=== PATIENT | female | born 1960 | race Caucasian/White ===

== ENCOUNTER 2017-06-18 07:06 | Day surgery (SDC) | payer OTHER ==
--- NOTE | 2017-06-17 09:16 | CPEKG ---
Heart Rate: 66 RR Interval: 909 P-R Interval: 152 QRSD Interval: 86 QT Interval: 440 QTC Interval: 461 P [place]: 68 QRS [place]: 69 EKG Severity - NORMAL ECG - EKG Impression: SINUS RHYTHM Electronically Signed By: Sterling Plasencia 17-Jun-2017 11:00:43
--- NOTE | 2017-06-17 09:16 | CPEKG ---
Heart Rate: 66 RR Interval: 909 P-R Interval: 152 QRSD Interval: 86 QT Interval: 440 QTC Interval: 461 P [place]: 68 QRS [place]: 69 EKG Severity - NORMAL ECG - EKG Impression: SINUS RHYTHM Electronically Signed By: Sterling Plasencia 17-Jun-2017 11:00:43
[~2017-06-18 07:06] MED LIST: PROPOFOL/EMULSION 500 MG/50 ML BOTTLE IV ONE; fentaNYL 100 MCG/2 ML INJ ONE
[2017-06-18] MEDS ORDERED: MITOMYCIN INVES ONE (07:15)
[2017-06-18] MEDS ORDERED: ceFAZolin 2 GM/SWFI 2 GM/20 ML SYR IVP ONE ×2 (07:18)
[2017-06-18] MEDS ORDERED: LR 1,000 ML IV ONE ×2 (07:19)
[2017-06-18] MEDS ORDERED: MIDAZOLAM 2 MG/2 ML VIAL IVP ONE ×2 (07:23)
[2017-06-18] MEDS ORDERED: ALBUTEROL 3 ML DEYVIAL ONE ×2 (07:34)
[2017-06-18] MEDS ORDERED: ALBUTEROL 60 PUFFS/8 GM MDI IH PRN ×2 (07:37)
--- NOTE | 2017-06-18 07:40 | PDANEPAE ---
ANE History of Present Illness 57 year old woman for cystoscopy for excision of recurrent bladder tumor. History of Asthma, Obesity, Hypertension, and ADHD. ANE Past Medical History - Cardiovascular History Hx Hypertension: Yes Hx Arrhythmias: No Hx Chest Pain: No Hx Coronary Artery / Peripheral Vascular Disease: No Hx CHF / Valvular Disease: No Hx Palpitations: No - Pulmonary History Hx COPD: Yes Hx Recent Upper Respiratory Infection: Yes Hx Oxygen in Use at Home: No Hx Sleep Apnea: No Sleep Apnea Screening Result - Last Documented: Positive Pulmonary History Comment: TROUBLE BREATHING AFTER SURGERY 09/2016 USED OXYGEN AT HOME POST OP - Neurologic History Hx Cerebrovascular Accident: No Hx Seizures: No Hx Dementia: No - Endocrine History Hx Diabetes: No Endocrine History Comment: HYPOTHYROID - Renal History Hx Renal Disorders: No Renal History Comment: HAS HAD UA INCONT SURG NOW DOING OK - Liver History Hx Hepatic Disorders: No - Neurological & Psychiatric Hx Hx Neurological and Psychiatric Disorders: Yes Neurological / Psychiatric History Comment: ADHD. CHRONIC FATIQUE. DEPRESSION - Cancer History Hx Cancer: Yes Cancer History Comment: BLADDER - Congenital Disorder History Hx Congenital Disorders: No - GI History Hx Gastrointestinal Disorders: Yes Gastrointestinal History Comment: WITH HUNGER FELT LIKE SHE WOULD THROW UP PLACED ON RX WITH RESOLUTION - Other Health History Other Health History: WEAK BACK. INTERMITTENT SCIATICA - Chronic Pain History Chronic Pain: No - Surgical History Prior Surgeries: 06/2016 AT [facility] RECTOCELE AND BLADDER SLING(NOTICED BLADDER TUMOR) WITH REMVL OF TUMOR 09/2016. DX LAP. REML CERVICAL POLYP/DYSPLASIA ANE Review of Systems Review of Systems: - Exercise capacity METS (RN): 3 METS ANE Patient History - Allergies Allergies/Adverse Reactions: hydrocodone [From Vicodin] Allergy (Verified 06/15/17 14:45) ITCH metronidazole [From Flagyl] Allergy (Verified 06/15/17 14:45) SWELLING oxycodone [From Percocet] Allergy (Verified 06/15/17 14:46) GI - Home Medications Home Medications: Celexa DAILY06 06/15/17 [Last Taken Unknown] Dulera 100 Mcg/5 Mcg Inhaler BID 06/15/17 [Last Taken Unknown] Flonase Nasal [place] BID 06/15/17 [Last Taken Unknown] Herbal Drugs DAILY 06/15/17 [Last Taken 06/17/17] Hydrochlorothiazide DAILY06 06/15/17 [Last Taken 06/17/17] Liothyronine Sodium DAILY06 06/15/17 [Last Taken 06/17/17] Montelukast Sodium HS 06/15/17 [Last Taken 06/17/17] Proair Hfa PRN 06/15/17 [Last Taken 06/17/17] Ranitidine HCl BID 06/15/17 [Last Taken 06/18/17 06:00] Synthroid DAILY06 06/15/17 [Last Taken 06/18/17 06:00] VYVANSE DAILY06 06/15/17 [Last Taken 06/17/17] - Smoking Hx Smoking Status: Former smoker ANE Labs/Vital Signs - Labs Result Diagrams: 06/16/17 14:38 - Vital Signs Height: 160.02 cm Weight: 93.894 kg ANE Physical Exam - Airway Mallampati Score: Class 2 Mouth exam: dentures - Pulmonary Pulmonary: no respiratory distress - Cardiovascular Cardiovascular: regular rate and rhythym - ASA Status ASA Status: III
[2017-06-18 07:48] VITALS: PULSE 68
[2017-06-18] MEDS ORDERED: ALBUTEROL 200 PUFFS/18 GM MDI IH PRN ×2 (07:48)
[2017-06-18] MEDS ORDERED: IOPAMIDOL (ISOVUE-M 300) 15 ML VIAL ONE ×2 (07:54)
--- NOTE | 2017-06-18 07:54 | PDHPUP ---
History & Physical Update H&P update statement: This history and physical update is based on an assessment of the patient which was completed after admission or registration (within 24 hours), but prior to the surgery/procedure. H&P update: H&P reviewed & patient examined, no change in patient's condition since H&P completed
[2017-06-18] MEDS ORDERED: OPIUM/BELLADONNA ALKALO SUPP PR ONE ×4 (08:30→09:25)
[2017-06-18] MEDS ORDERED: PHENAZOPYRIDINE HCL 200 MG TAB PO ONE ×2 (09:00)
[2017-06-18] MEDS ORDERED: ONDANSETRON 4 MG/2 ML VIAL IVP PRN ×2 (09:16)
[2017-06-18] MEDS ORDERED: LABETALOL HCL 50 MG/10 ML SYR IVP PRN ×2 (09:16)
[2017-06-18] MEDS ORDERED: METOCLOPRAMIDE 10 MG/2 ML VIAL IVP PRN ×2 (09:16)
[2017-06-18] MEDS ORDERED: PROMETHAZINE HCL 25 MG/ML INJ IVP PRN ×2 (09:16)
[2017-06-18] MEDS ORDERED: NALOXONE HCL 0.4 MG/ML INJ IVP PRN ×2 (09:16)
[2017-06-18] MEDS ORDERED: ACETAMINOPHEN 500 MG TAB PO PRN ×2 (09:16)
[2017-06-18] MEDS ORDERED: LR 500 ML IV PRN ×2 (09:16)
--- NOTE | 2017-06-18 09:19 | POSTANESTH ---
Post Anesthetic Evaluation Respiratory Status: Normal, Stable Level of Consciousness/Mental Status: Can Participate in Eval Pain Control: Adequate, Prn Tx Ordered Nausea/Vomiting Control: Adequate, Prn Tx Ordered Complications Possibly Related to Anesthesia: None Noted
[2017-06-18] MEDS ORDERED: PHENAZOPYRIDINE HCL 200 MG TAB ONE ×2 (09:25)
--- NOTE | 2017-06-18 09:29 | POSTOPPROG ---
Post Op Note Date of Operation: 06/18/17 Surgeon: Sury Prasad Lens And Frames Prescription Clerk: N/A Anesthesia: LMA Pre-op Diagnosis: Bladder tumor Post-op Diagnosis: same Indication: Recurrent bladder tumor, hx Ta medium size tumor Procedure: cystoscopy, bilateral retrograde pyelograms, TURBT tumor small <5mm Findings: small papillary tumor lateral to left UO, not involving UO. Inf/Abcess present in the surg proc area at time of surgery?: No Depth: Organ Space (bladder) Complications: None, patient tolerated procedure well. Drains: Other (Pate) Specimen(s): Re-TUR near prior resection at anterior left bladder. Separate bladder resection sent for papillary tumor lateral to left UO
[2017-06-18] MEDS ORDERED: fentaNYL 100 MCG/2 ML INJ ONE ×4 (09:46→10:57)
[2017-06-18] MEDS: fentaNYL 100 MCG/2 ML INJ IVP PRN ×4 (09:48→10:59)
[2017-06-18 09:50] VITALS: TEMP 97.7
[2017-06-18 10:23] VITALS: BP 110/72; RESP 15; O2SAT 95
--- NOTE | 2017-06-18 10:53 | GOP ---
[f rep st] OPERATIVE REPORT DATE OF OPERATION: 06/18/2017 SURGEON: Sury Prasad MD ANESTHESIA: LMA PREOPERATIVE DIAGNOSIS: Bladder tumor. POSTOPERATIVE DIAGNOSIS: Bladder tumor. PROCEDURE PERFORMED: cystoscopy, bilateral retrograde pyelograms, TURBT small < 0.5cm, intraoperative fluoroscopy. FINDINGS: Upper tracts appeared normal, delicate without hydronephrosis or filling defects bilaterally with retrograde pyelograms. There was small <0.5mm papillary tumor, low lying lateral to left ureteral orifice, not involving the orifice. NO tumor seen around prior left anterior resections site. Bladder abnormally shaped due to prior urogyn surgeries, pulled off the to the right and high dome. INDICATIONS: The patient underwent a urogynecologic procedure back in June with Dr. Sterling Forde at [facility] and, at the time of the cysto for the stress urinary incontinence sling, he noted a medium size bladder tumor. [facility] this tumor in August, and pathology was a TA but there was no muscle in the specimen and it was low grade. She had not had a surveillance cysto and came to me for that surveillance cysto approximately 2 weeks ago. I looked in her bladder in my office and I noted what looked like recurrent tumor around the prior resection site and also other abnormal areas. I advised her to go back for a TUR of these areas. The rationale, risks and benefits were discussed in detail with the patient and she agree to proceed. Risks included bleeding, infection, pain, perforation of the bladder, injury to the bladder, injury to the urethra. She understood these risks do not outweigh the benefit of resecting her tumor and she agreed to proceed. DESCRIPTION OF PROCEDURE: She was taken back to the cystoscopy suite, placed on the cystoscopy table in a supine position. General anesthesia with an LMA was induced without complication. A time-out was performed and core measures were satisfied including placement of a Bear Hugger, SCDs and administration of 2 g of Ancef antibiotic. She was brought to the end of the table, placed in a dorsal lithotomy position, all pressure points were padded. Genitalia were prepped and draped in a standard surgical fashion with Betadine. A rigid cystoscope easily cannulated her urethral meatus and was advanced atraumatically into the bladder. I did jorgensen cystoscopy with a 30 and a 70 degree lens. Her bladder shape was abnormal, with the bladder pulled to the right and the dome very high. Her left and right ureteral orifices were to the right, but otherwise in the correct anatomical position, no tumor was noted around them but there were two areas of small, low lying papillary tumors just lateral to the left ureteral orifice. Also, I noted in my clinic, that she was abnormal around that prior resection site but it did not look abnormal on my cysto in the OR but, given that there was no muscle in the specimen, I elected to also want to resect around that prior tumor area as well just to get some deeper samples. She has not had a CT urogram recently and so I elected to do bilateral retrograde pyelograms. I did the left collecting system first. I advanced a 5-Central [place] open-ended Pollack catheter through the cystoscope and just into the left ureteral orifice. Retrograde was performed and the collecting system was smooth and delicate. There were no filling defects. The renal pelvis was without hydronephrosis and was normal appearing and all the calices were normal appearing. I then did a retrograde on the right. I ran my own fluoroscopy for all of this and did all the interpretation. I did the retrograde on the right in the same fashion and again, the ureter as well as the renal pelvis and the right collecting system were normal with no abnormalities, no filling defects or concerns for abnormal pathology. The contrast also drained appropriately in both the right and left collecting systems. Next, I removed the cystoscope and assembled the resectoscope. I started resecting with the prior area of resection around the bladder neck anterior left and used electrocautery to gain hemostasis. There was very little bleeding. Again, I did not see anything grossly abnormal but I did feel I wanted to resect this a little deeper to make sure there was no abnormal pathology. These samples were collected and sent separately. Her bladder was very oddly shaped with her recent urogynecologic procedures and, when you go in with your scope, the bladder goes off to her right side and then has a dome that is more then to the left and very high. So, it was very difficult getting these bladder tumor pieces out given the abnormal shape of the bladder but I used an PagoFacil evacuator and was able to remove the pieces this way. Next, I then resected the small papillary low-lying tumor just left of the lateral ureteral orifice. I did send this separately as well. I used electrocautery around the sites of resection to cauterize a nice margin. The left ureteral orifice was not involved at all in the resection nor was the left ureter. The resections were a little deeper and so, at this point, I elected not to do Mitomycin just given that they were a little deeper and could have a small microperforation although I did not see any gross perforation. At this point, all the tumor pieces were gathered. I did also use an LoSo evacuator to gather some of those tumor pieces just because the abnormal anatomy of the bladder made it difficult for grabbing the pieces with the resectoscope loop. Nonetheless, all the bladder tumor was removed at the end of the case. All the pieces were sent, as I had previously said, and hemostasis was excellent. I removed the scope and advanced the 16-Central African Pate catheter to empty her bladder. I sent her into the PACU with the catheter and PACU will remove the catheter depending on how the urine appears in PACU. She did well during the procedure and awoke from the general anesthesia without complication. COMPLICATIONS: None, patient tolerated procedure well.. /[id number]/MODL MTDD
== END 2017-06-18 11:24 | disposition home or self-care (01) ==
LOC: FSGY 07:06
PROVIDERS: ATTEND Urology
PROC: BT1F1ZZ Fluoroscopy of Left Kidney, Ureter and Bladder using Low Osmolar Contrast (ICD-10-PCS; principal; 2017-06-18 07:15)
PROC: BT1D1ZZ Fluoroscopy of Right Kidney, Ureter and Bladder using Low Osmolar Contrast (ICD-10-PCS; principal; 2017-06-18 07:15)
PROC: 0TBB8ZZ Excision of Bladder, Via Natural or Artificial Opening Endoscopic (ICD-10-PCS; principal; 2017-06-18 07:15)
DX: D30.3 Benign neoplasm of bladder (principal); E03.9 Hypothyroidism, unspecified; R53.82 Chronic fatigue, unspecified; F32.9 Major depressive disorder, single episode, unspecified; F90.9 Attention-deficit hyperactivity disorder, unspecified type; Z87.891 Personal history of nicotine dependence
CPT/HCPCS: 52005; 52234; 76001; 93005; C1758; J0690; J2250; J2704; J3010; J9280; Q9967

== ENCOUNTER 2018-09-08 06:04 | Day surgery (SDC) | payer OTHER ==
[2018-09-08] MEDS ORDERED: ceFAZolin 2 GM/DEXTROSE 100 ML IV ONE (06:24)
[2018-09-08] MEDS ORDERED: HYDROmorphONE/DILAUDID 2 MG/ML INJ IVP PRN (06:49)
[2018-09-08] MEDS ORDERED: fentaNYL 100 MCG/2 ML INJ IVP PRN (06:49)
[2018-09-08] MEDS ORDERED: PROMETHAZINE HCL 25 MG/ML INJ IVP PRN (06:49)
[2018-09-08] MEDS ORDERED: MIDAZOLAM 2 MG/2 ML VIAL IVP ONE (06:49)
[2018-09-08] MEDS ORDERED: PHENYLEPHRINE HCL 100 MCG/ML SYR IVP PRN (06:49)
[2018-09-08] MEDS ORDERED: LR 500 ML IV PRN (06:49)
[2018-09-08] MEDS ORDERED: METOCLOPRAMIDE 10 MG/2 ML VIAL IVP PRN (06:49)
[2018-09-08] MEDS ORDERED: NALOXONE HCL 0.4 MG/ML INJ IVP PRN (06:49)
[2018-09-08] MEDS ORDERED: ONDANSETRON 4 MG/2 ML VIAL IVP PRN (06:49)
[2018-09-08] MEDS ORDERED: MEPERIDINE 25 MG/0.5 ML AMP IVP PRN (06:49)
[2018-09-08] MEDS ORDERED: DEXAMETHASONE 4 MG/ML VIAL ONE (07:04)
[2018-09-08] MEDS ORDERED: ONDANSETRON 4 MG/2 ML VIAL ONE (07:04)
[2018-09-08] MEDS ORDERED: LIDOCAINE 2% 2 ML INJ ONE (07:04)
[2018-09-08] MEDS ORDERED: PROPOFOL 200 MG/20 ML VIAL ONE ×2 (07:04→08:11)
[2018-09-08] MEDS ORDERED: fentaNYL 100 MCG/2 ML INJ ONE (07:04)
[2018-09-08] MEDS ORDERED: SCOPOLAMINE HYDROBROMIDE 1 MG/3 DAYS PATCH TD SCH (07:15)
[2018-09-08] MEDS ORDERED: ALBUTEROL 3 ML DEYVIAL IH ONE (07:16)
--- NOTE | 2018-09-08 07:17 | PDANEPAE ---
ANE Past Medical History - Cardiovascular History Hx Hypertension: Yes Hx Arrhythmias: No Hx Chest Pain: No Hx Coronary Artery / Peripheral Vascular Disease: No Hx CHF / Valvular Disease: No Hx Palpitations: No - Pulmonary History Hx COPD: Yes Hx Asthma/Reactive Airway Disease: Yes Hx Recent Upper Respiratory Infection: Yes Hx Oxygen in Use at Home: No Hx Sleep Apnea: Yes Sleep Apnea Screening Result - Last Documented: Positive Pulmonary History Comment: TROUBLE BREATHING AFTER SURGERY 09/2016 USED OXYGEN AT HOME POST OP. exercise induced asthma - Neurologic History Hx Cerebrovascular Accident: No Hx Seizures: No Hx Dementia: No - Endocrine History Hx Diabetes: No Endocrine History Comment: HYPOTHYROID - Renal History Hx Renal Disorders: No Renal History Comment: HAS HAD UA INCONT SURG NOW DOING OK - Liver History Hx Hepatic Disorders: No - Neurological & Psychiatric Hx Hx Neurological and Psychiatric Disorders: Yes Neurological / Psychiatric History Comment: ADHD. CHRONIC FATIQUE. DEPRESSION gets ECT - Cancer History Hx Cancer: Yes Cancer History Comment: BLADDER - Congenital Disorder History Hx Congenital Disorders: No - GI History Hx Gastrointestinal Disorders: Yes Gastrointestinal History Comment: IBS with constipation/diarrhea - Other Health History Other Health History: WEAK BACK. INTERMITTENT SCIATICA. denture upper - Chronic Pain History Chronic Pain: No - Surgical History Prior Surgeries: 06/2016 AT [facility] RECTOCELE AND BLADDER SLING(NOTICED BLADDER TUMOR) WITH REMVL OF TUMOR 09/2016. DX LAP. REML CERVICAL POLYP/DYSPLASIA ANE Review of Systems Review of Systems: - Exercise capacity METS (RN): 4 METS ANE Patient History - Allergies Allergies/Adverse Reactions: hydrocodone [From Vicodin] Allergy (Verified 09/08/18 06:24) ITCH metronidazole [From Flagyl] Allergy (Verified 09/08/18 06:24) SWELLING oxycodone [From Percocet] Allergy (Verified 09/08/18 06:24) GI - Home Medications Home Medications: Celexa 06/15/17 [Last Taken Unknown] Dulera 100 Mcg/5 Mcg Inhaler 06/15/17 [Last Taken Unknown] Flonase Nasal [place] 06/15/17 [Last Taken Unknown] Herbal Drugs 06/15/17 [Last Taken 06/17/17] Hydrochlorothiazide 06/15/17 [Last Taken 06/17/17] Liothyronine Sodium 06/15/17 [Last Taken 06/17/17] Montelukast Sodium 06/15/17 [Last Taken 06/17/17] Proair Hfa 06/15/17 [Last Taken 06/17/17] Ranitidine HCl 06/15/17 [Last Taken 06/18/17 06:00] Synthroid 06/15/17 [Last Taken 06/18/17 06:00] VYVANSE 06/15/17 [Last Taken 06/17/17] Acetaminophen [Tylenol 325mg (*)] 08/29/18 [Last Taken Unknown] - NPO status NPO Since - Liquids (Date): 09/07/18 NPO Since - Liquids (Time): 23:00 NPO Since - Solids (Date): 09/07/18 NPO Since - Solids (Time): 23:00 - Smoking Hx Smoking Status: Former smoker - Family Anes Hx Family Hx Anesthesia Complications: none ANE Labs/Vital Signs - Vital Signs Blood Pressure: 113/84 Heart Rate: 85 Respiratory Rate: 16 O2 Sat (%): 91 Height: 160.02 cm Weight: 90.718 kg ANE Physical Exam - Airway Neck exam: FROM Mallampati Score: Class 2 Mouth exam: normal dental/mouth exam - Pulmonary Pulmonary: no respiratory distress, no rales or rhonchi, clear to auscultation - Cardiovascular Cardiovascular: regular rate and rhythym, no murmur, rub, or gallop - ASA Status ASA Status: III ANE Anesthesia Plan Anesthesia Plan: GA w LMA
[2018-09-08] MEDS ORDERED: ALBUTEROL 3 ML DEYVIAL ONE (07:19)
[2018-09-08] MEDS ORDERED: LR 1,000 ML IV ONE (07:25)
--- NOTE | 2018-09-08 07:29 | PDGENHP ---
History & Physical Chief Complaint: recurent bladder tumor History of Present Illness: Hx bladder tumor, surveillance cysto showed recurrence. Here for TURBT. Pertinent Past, Social, Family History: PMH/PSH/FH/SH reviewed Relevant Physical Exam: Gen NAD. CV regular. Lung Nl effort. Abd soft. Ext warm Cardiorespiratory Assessment: Recurrent Tumor. TURBT, possible MMC. Ancef
[2018-09-08] MEDS ORDERED: PHENYLEPHRINE HCL 100 MCG/ML SYR ONE (07:43)
--- NOTE | 2018-09-08 07:45 | POSTANESTH ---
Post Anesthetic Evaluation Cardiovascular Status: Normal, Stable Respiratory Status: Normal, Stable Level of Consciousness/Mental Status: Can Participate in Eval Pain Control: Adequate, Prn Tx Ordered Nausea/Vomiting Control: Adequate, Prn Tx Ordered Complications Possibly Related to Anesthesia: None Noted
[2018-09-08] MEDS ORDERED: LIDOCAINE 2% JELLY 20 ML (UROJECT) ONE (07:52)
[2018-09-08] MEDS ORDERED: OPIUM/BELLADONNA ALKALO SUPP PR ONE ×2 (07:53→09:15)
[2018-09-08] MEDS ORDERED: ePHEDrine SULFATE 25 MG/5 ML SYR ONE (08:16)
[2018-09-08] MEDS ORDERED: METOCLOPRAMIDE 10 MG/2 ML VIAL ONE (08:33)
--- NOTE | 2018-09-08 08:59 | POSTOPPROG ---
Post Op Note Date of Operation: 09/08/18 Surgeon: Sury Prasad Anesthesiologist: Mallory Anesthesia: GET(General Endotracheal) Pre-op Diagnosis: bladder tumor Post-op Diagnosis: same Indication: recurrent bladder tumor Procedure: cysto, TURBT small, bladder bx Findings: recurrent papillary tumors x 3 Inf/Abcess present in the surg proc area at time of surgery?: No EBL: Minimal Complications: none, patient tolerated procedure well Drains: Other (anderson)
[2018-09-08] MEDS ORDERED: ACETAMINOPHEN 325 MG TAB PO PRN (10:36)
[2018-09-08] MEDS ORDERED: PHENAZOPYRIDINE HCL 200 MG TAB ONE (10:47)
[2018-09-08] MEDS ORDERED: SODIUM CL 0.9% INVES ONE (11:00)
[2018-09-08] MEDS ORDERED: MITOMYCIN INVES ONE (11:00)
[2018-09-08] MEDS ORDERED: PHENAZOPYRIDINE HCL 200 MG TAB PO SCH (13:00)
[2018-09-08 13:36] VITALS: BP 115/66
[2018-09-08] MEDS ORDERED: OXYBUTYNIN CHLORIDE 5 MG TAB PO SCH (16:00)
--- NOTE | 2018-09-09 14:14 | PDFACE2FAC ---
Face to Face Encounter Note date: 09/08/2018 = Patient was seen in the PACU, anderson in place and verification made that all urine drained from bladder. Personal protective equipment was worne by me and patinet protected with drape. Then 40mg mitomycin in 40ml NS was instilled into bladder through catheter and catheter. She will keep this in her bladder for 1 hr, changing position every 15m and then chemotherapy drained and anderson removed.
--- NOTE | 2018-09-09 15:15 | GOP ---
DATE OF OPERATION: 09/08/2018 SURGEON: Sury Prasad MD ANESTHESIA: General. ANESTHESIOLOGIST: Andrzej Tejada MD. PREOPERATIVE DIAGNOSIS: Recurrent bladder tumor. POSTOPERATIVE DIAGNOSIS: Recurrent bladder tumor. PROCEDURE PERFORMED: Cystoscopy with transurethral resection of a small tumor and then cold cup chloe bhanu of other tumors. FINDINGS: Three small papillary tumors, one approximately 3 mm and the remaining ones were 1 mm in s ize. The 3 mm one was removed with the resectoscope loop and the other 2 were removed with a cold cu p biopsy forceps. SPECIMENS: Bladder tumor. ESTIMATED BLOOD LOSS: Minimal. INDICATIONS: History of TA urothelial cell carcinoma with recent recurrence on surveillance cystosco py. DESCRIPTION OF PROCEDURE: The patient was taken back to the cystoscopy suite, placed on the cystosco py table in the supine position. General anesthesia induced without complication. Time-out performe d and core measures satisfied, including placement of a Dante Hugger, SCDs, and administration of 2 g Ancef antibiotics. She was brought to the end of the table, placed in a dorsal lithotomy position. All pressure points padded. Genitalia draped and prepped in a standard surgical fashion with Shruti mendoza. A rigid cystoscope easily cannulated her urethral meatus and was advanced atraumatically into her bladder. Her bladder was not a round vessel. It was pulled to the right because of prior urogyneco logy procedures and so it pulls to the right. I looked around the whole bladder with a 30 and a 70 d egree lens and noted 3 small tumors, 1 about 3 mm in size that was close to the dome and then the oth er two were to the left of this, but again anterior and toward the dome. The remaining bladder looke d healed. Her prior resection site was well healed and there were no tumors around that. After doing cystoscopy, I assembled the resectoscope and used the loop to resect the larger of these small tumors. I resected it in its entirety and handed off to Pathology for permanent samples and th en I used the cold cup biopsy forceps that hooked into the TURis resectoscope obturator and biopsied the remaining 2 small tumors and then I reassembled the loop and cauterized these resection sites. H emostasis was excellent at the end. I do feel I cleared her of the tumor with this procedure and all samples were sent to pathology as permanent. Her bladder was then emptied and a Pate catheter plac ed with a plan for installation of mitomycin-C in the PACU. She did well for the procedure. COMPLICATIONS: None. DRAINS: Pate catheter was placed in the operating as a drain. /[id number]/MODL
[2018-09-11] MEDS ORDERED: PATCH REMOVAL 1 EA PATCH TD SCH (07:15)
== END 2018-09-08 13:50 | disposition home or self-care (01) ==
LOC: FSGY 06:04
PROVIDERS: ATTEND Urology
PROC: 0TBB8ZZ Excision of Bladder, Via Natural or Artificial Opening Endoscopic (ICD-10-PCS; principal; 2018-09-08 07:30)
DX: C67.9 Malignant neoplasm of bladder, unspecified (principal); E03.9 Hypothyroidism, unspecified
CPT/HCPCS: J0690; J1100; J2250; J2370; J2405; J2704; J2765; J3010; J7613; J9280

== ENCOUNTER → 2019-02-08 | Outpatient (CLI) | payer OTHER | LOC: FIMAGING 10:42 ==